=== PATIENT | male | born 1985 | race African-American/Black ===

== ENCOUNTER 2021-11-15 23:00 | Emergency (ER) | payer OTHER ==
[~2021-11-15] VITALS: Ht 165.1 cm; Wt 72.7 kg
[2021-11-16] MEDS ORDERED: SULFAMETHOX/TRIMETH DS 800-160 MG/TABLET PO ONE (00:30)
[2021-11-16] MEDS ORDERED: CEPHALEXIN MONOHYDRATE 500 MG CAPSULE PO ONE (00:30)
[2021-11-16] MEDS ORDERED: MUPI15CR12 TP (01:19)
[2021-11-16] MEDS ORDERED: CEPH-558 PO (01:19)
[2021-11-16] MEDS ORDERED: SULF-261 PO (01:20)
[2021-11-16 01:30] VITALS: BP 143/86
== END 2021-11-16 02:50 | disposition home or self-care (01) ==
LOC: EMS 23:01
DX: L03.211 Cellulitis of face (principal); L01.00 Impetigo, unspecified; F17.210 Nicotine dependence, cigarettes, uncomplicated; F12.90 Cannabis use, unspecified, uncomplicated; Z87.2 Personal history of diseases of the skin and subcutaneous tissue
CPT/HCPCS: 99283